=== PATIENT | female | born 1985 | race African-American/Black ===

== ENCOUNTER 2018-09-29 12:40 | Emergency (ER) | payer MEDICAID ==
[~2018-09-29] VITALS: Ht 162.6 cm; Wt 88.0 kg
[~2018-09-29 12:40] MED LIST: BENA20TA77 PO; DOCU-138 PO; FERR-63 PO; MULT-348 PO
[2018-09-29] MEDS ORDERED: SODIUM CHLORIDE 0.9% 1,000 ML IV ONE (13:56)
[2018-09-29] MEDS ORDERED: ONDANSETRON HCL 4MG/2ML INJ IV ONE (14:00)
[2018-09-29] MEDS ORDERED: MORPHINE SULFATE 4 MG/ML CPJ (NOT FOR IM USE) IV ONE (14:00)
[2018-09-29 14:38] LABS: EOSINOPHILS % 0.9 % (0.0-5.0); HEMATOCRIT. 34.3 % (36.0-48.0); HEMOGLOBIN. 11.2 g/dL (12.0-16.0); LYMPHOCYTES % 30.6 % (20.0-50.0); MEAN CORPUSCULAR HEMOGLOBIN 30.7 pg (28.0-32.0); MEAN CORPUSCULAR VOLUME 93.7 fL (81.0-99.0); MEAN PLATELET VOLUME 10.5 fl (7.4-10.4); MONOCYTES % 7.2 % (2.0-8.0); NEUTROPHILS % 60.3 % (40.0-76.0); PLATELET 250 x1000/uL (130-400); RED BLOOD CELL COUNT 3.66 mill/uL (4.2-5.4)
[2018-09-29 14:41] LABS: CHLORIDE 107 mEq/L (98-107); PROTHROMBIN TIME 10.2 sec (9.1-11.1)
[2018-09-29 15:06] LABS: B-HCG QUANTITATIVE 55919 mIU/mL (<3)
[2018-09-29 15:30] LABS: CLARITY URINE CLOUDY (CLEAR); COLOR URINE YELLOW (YELLOW); KETONES URINE TRACE (NEGATIVE); LEUKOCYTE ESTERASE URINE 2+ (NEGATIVE); NITRITE URINE NEGATIVE (NEGATIVE); OCCULT BLOOD URINE NEGATIVE (NEGATIVE); PROTEIN URINE NEGATIVE (NEGATIVE); SPECIFIC GRAVITY URINE 1.016 (1.005-1.030); UROBILINOGEN URINE 0.2 E.U./dL (0.2-1.0)
[2018-09-29 16:50] VITALS: BP 119/78
== END 2018-09-29 16:50 | disposition home or self-care (01) ==
LOC: ER 12:40
DX: O34.81 Maternal care for other abnormalities of pelvic organs, first trimester (principal); N83.202 Unspecified ovarian cyst, left side; O26.831 Pregnancy related renal disease, first trimester; N28.9 Disorder of kidney and ureter, unspecified; Z3A.01 Less than 8 weeks gestation of pregnancy
CPT/HCPCS: 36415; 76801; 76817; 80053; 81003; 81025; 84702; 85025; 85610; 86850; 86900; 86901; 93976; 99284; J7030

== ENCOUNTER 2020-03-21 08:16 | Emergency (ER) | payer MEDICAID ==
[~2020-03-21] VITALS: Ht 162.6 cm; Wt 92.0 kg
[2020-03-21 08:34] VITALS: BP 202/121
[2020-03-21] MEDS ORDERED: KETOROLAC 60MG/2ML VIAL IM ONE (09:15)
[2020-03-21] MEDS ORDERED: DEXAMETHASONE 4MG/ML 1ML VIAL IM ONE (09:15)
[2020-03-21] MEDS ORDERED: OXYCODONE HCL/ACETAMINOPHEN 5/325MG TABLET PO ONE (09:15)
[2020-03-21] MEDS ORDERED: ACETAMINOPHEN 325MG TABLET PO ONE (10:15)
== END 2020-03-21 16:10 | disposition home or self-care (01) ==
LOC: ER 08:16
DX: M54.41 Lumbago with sciatica, right side (principal)
CPT/HCPCS: 81025; 96372; 99284; J1100; J1885

== ENCOUNTER 2022-04-02 06:16 | Emergency (ER) | payer MEDICAID ==
[~2022-04-02] VITALS: Ht 162.6 cm; Wt 89.0 kg
[2022-04-02 06:24] VITALS: BP 150/103
[2022-04-02 08:38] LABS: CHLORIDE 103 mEq/L (98-107)
[2022-04-02 08:39] LABS: BASOPHILS % 0.7 % (0.0-2.0); EOSINOPHILS % 0.8 % (0.0-5.0); HEMATOCRIT. 40.4 % (36.0-48.0); HEMOGLOBIN. 13.7 g/dL (12.0-16.0); LYMPHOCYTES % 24.7 % (20.0-50.0); MEAN CORPUSCULAR HEMOGLOBIN 33.5 pg (28.0-32.0); MEAN CORPUSCULAR VOLUME 99.2 fL (81.0-99.0); MEAN PLATELET VOLUME 10.2 fl (7.4-10.4); MONOCYTES % 7.7 % (2.0-8.0); NEUTROPHILS % 66.1 % (40.0-76.0); PLATELET 249 x1000/uL (130-400); RED BLOOD CELL COUNT 4.07 mill/uL (4.2-5.4); RED CELL DISTRIBUTION WIDTH 15.7 % (11.6-14.6)
[2022-04-02 08:49] LABS: B-HCG QUANTITATIVE < 1 mIU/mL (<3)
== END 2022-04-02 11:24 | disposition left against medical advice (07) ==
LOC: ER 06:16
DX: Z53.21 Procedure and treatment not carried out due to patient leaving prior to being seen by health care provider (principal); R10.30 Lower abdominal pain, unspecified; R94.31 Abnormal electrocardiogram [ECG] [EKG]
CPT/HCPCS: 36415; 80053; 84702; 85025; 86850; 86900; 99284

== ENCOUNTER 2022-06-21 13:09 | Emergency (ER) | payer MEDICAID ==
[~2022-06-21] VITALS: Ht 170.2 cm; Wt 86.0 kg
[2022-06-21 15:03] VITALS: BP 165/98
== END 2022-06-21 15:03 | disposition home or self-care (01) ==
LOC: ER 13:09
DX: I10 Essential (primary) hypertension (principal); F43.9 Reaction to severe stress, unspecified; Z91.138 Patient's unintentional underdosing of medication regimen for other reason
CPT/HCPCS: 93005; 99283

== ENCOUNTER 2024-03-18 17:05 | Emergency (ER) | payer MEDICAID ==
[~2024-03-18] VITALS: Ht 162.6 cm; Wt 86.2 kg
[2024-03-18 17:21] VITALS: O2SAT 99
[2024-03-18 18:34] LABS: BASOPHILS % 0.4 % (0.0-2.0); DIFFERENTIAL COMMENT 0; EOSINOPHILS % 0.8 % (0.0-5.0); HEMATOCRIT. 40.8 % (36.0-48.0); HEMOGLOBIN. 13.7 g/dL (12.0-16.0); LYMPHOCYTES % 25.7 % (20.0-50.0); MEAN CORPUSCULAR HEMOGLOBIN 35.5 pg (28.0-32.0); MEAN CORPUSCULAR HGB CONC 33.5 g/dL (31.0-37.0); MEAN CORPUSCULAR VOLUME 105.8 fL (81.0-99.0); MEAN PLATELET VOLUME 9.8 fl (7.4-10.4); MONOCYTES % 7.5 % (2.0-8.0); NEUTROPHILS % 65.6 % (40.0-76.0); PLATELET 282 x1000/uL (130-400); RED BLOOD CELL COUNT 3.86 mill/uL (4.2-5.4); RED CELL DISTRIBUTION WIDTH 14.4 % (11.6-14.6); WHITE BLOOD COUNT 10.6 x1000/uL (4.5-11.0)
[2024-03-18 18:39] LABS: CHLORIDE 102 mEq/L (98-107); POTASSIUM 3.4 mEq/L (3.5-5.1); SODIUM 137 mEq/L (136-145)
[2024-03-18 18:40] LABS: CARBON DIOXIDE 30 mEq/L (21-32)
[2024-03-18 18:41] LABS: CALCIUM 8.7 mg/dL (8.7-10.4)
[2024-03-18 18:45] LABS: CREATININE 1.5 mg/dL (0.6-1.0); GLUCOSE 100 mg/dL (70-105)
[2024-03-18 18:46] LABS: HCG SCREEN NEGATIVE; UREA NITROGEN BLOOD 19 mg/dL (9-23)
[2024-03-18 18:47] LABS: ALANINE AMINOTRANSFERASE 18 IU/L (10-49); ASPARTATE AMINOTRANSFERASE 21 IU/L (<34)
[2024-03-18 18:48] LABS: BILIRUBIN DIRECT 0.1 mg/dL (<=3.0); BILIRUBIN TOTAL 0.3 mg/dL (0.1-1.0); PROTEIN TOTAL 7.1 g/dL (6.0-8.3)
[2024-03-18] MEDS ORDERED: KETOROLAC 15MG/ML VIAL IM ONE (19:45)
[2024-03-18 21:31] LABS: CLARITY URINE CLEAR (CLEAR); COLOR URINE YELLOW (YELLOW); GLUCOSE URINE NEGATIVE (NEGATIVE); KETONES URINE NEGATIVE (NEGATIVE); LEUKOCYTE ESTERASE URINE NEGATIVE (NEGATIVE); NITRITE URINE NEGATIVE (NEGATIVE); OCCULT BLOOD URINE TRACE (NEGATIVE); PROTEIN URINE 2+ (NEGATIVE); SPECIFIC GRAVITY URINE 1.025 (1.005-1.030); UROBILINOGEN URINE 0.2 E.U./dL (0.2-1.0)
[2024-03-18 21:43] LABS: BACTERIA URINE 1+; SQUAMOUS EPITHELIAL CELL URINE FEW /lpf (RARE/1+)
[2024-03-18 21:46] LABS: WBC URINE 0-2 /hpf (0-2)
[2024-03-18] MEDS: KETOROLAC 15MG/ML VIAL IM NR (21:49)
[2024-03-18 22:17] VITALS: BP 142/94; PULSE 60; RESP 18; TEMP 98.4
== END 2024-03-18 22:27 | disposition home or self-care (01) ==
LOC: ER 17:05
DX: K80.80 Other cholelithiasis without obstruction (principal); I10 Essential (primary) hypertension
CPT/HCPCS: 80076; 80048; 81003; 84703; 83690; 85025; 36415; 76705; 96372; 99285; J1885; Z7610

== ENCOUNTER 2024-05-09 11:48 | Emergency (ER) | payer MEDICAID ==
[~2024-05-09] VITALS: Ht 162.6 cm; Wt 90.0 kg
[2024-05-09 11:49] VITALS: BP 250/156; TEMP 98.8; O2SAT 100
[2024-05-09 11:54] VITALS: PULSE 95; RESP 18; O2SAT 100
[2024-05-09] MEDS ORDERED: CLIN-116 MT (13:28)
[2024-05-09] MEDS ORDERED: HYDR-4001 MT (13:29)
== END 2024-05-09 14:18 | disposition home or self-care (01) ==
LOC: ER 12:47
DX: K04.7 Periapical abscess without sinus (principal); I10 Essential (primary) hypertension; Z79.899 Other long term (current) drug therapy
CPT/HCPCS: 99283

== ENCOUNTER 2025-06-01 09:44 | Emergency (ER) | payer BC, MEDICAID ==
[~2025-06-01] VITALS: Ht 162.6 cm; Wt 91.0 kg
[~2025-06-01 09:44] MED LIST changes: +CLIN-116 MT; +HYDR-4001 MT
[2025-06-01 09:46] VITALS: O2SAT 98
[2025-06-01 09:50] VITALS: BP 190/114; PULSE 55; RESP 16; TEMP 37.1; O2SAT 98
[2025-06-01 10:42] LABS: BASOPHILS % 0.9 % (0.0-2.0); EOSINOPHILS % 2.3 % (0.0-5.0); HEMATOCRIT. 41.4 % (36.0-48.0); HEMOGLOBIN. 13.6 g/dL (12.0-16.0); LYMPHOCYTES % 30.9 % (20.0-50.0); MEAN PLATELET VOLUME 9.7 fl (7.4-10.4); MONOCYTES % 7.8 % (2.0-8.0); NEUTROPHILS % 58.1 % (40.0-76.0); PLATELET 274 x1000/uL (130-400); RED BLOOD CELL COUNT 4.05 mill/uL (4.2-5.4); RED CELL DISTRIBUTION WIDTH 15.0 % (11.6-14.6)
[2025-06-01 10:57] LABS: UREA NITROGEN BLOOD 28 mg/dL (9-23)
[2025-06-01 10:59] LABS: ASPARTATE AMINOTRANSFERASE 10 IU/L (<34); BILIRUBIN DIRECT 0.1 mg/dL (<=3.0)
[2025-06-01 11:00] LABS: BILIRUBIN TOTAL 0.4 mg/dL (0.1-1.0); PROTEIN TOTAL 7.1 g/dL (6.0-8.3)
[2025-06-01 11:02] LABS: CREATININE 2.9 mg/dL (0.6-1.0)
[2025-06-01] MEDS: SODIUM CHLORIDE 0.9% 1,000 ML IV ONE (13:06)
[2025-06-01 16:09] LABS: HCG SCREEN NEGATIVE
== END 2025-06-01 13:06 | disposition home or self-care (01) ==
LOC: ER 09:44 → CMPBEDREQ 19:14
DX: N28.9 Disorder of kidney and ureter, unspecified (principal); K80.70 Calculus of gallbladder and bile duct without cholecystitis without obstruction; I10 Essential (primary) hypertension; Z79.899 Other long term (current) drug therapy
CPT/HCPCS: 36415; 76705; 80048; 80076; 81025; 84703; 85025; 99284; J7030

== ENCOUNTER 2025-09-03 06:24 | Emergency (ER) | payer BC, MEDICAID ==
[~2025-09-03] VITALS: Ht 165.1 cm; Wt 88.0 kg
[2025-09-03 06:35] VITALS: O2SAT 100
[2025-09-03] MEDS: LABETALOL HCL 100MG TABLET PO NR (07:16)
[2025-09-03] MEDS: LABETALOL 5MG/ML 4ML INJ IV NR (07:16)
[2025-09-03 07:26] LABS: BASOPHILS % 1.2 % (0.0-2.0); EOSINOPHILS % 0.2 % (0.0-5.0); HEMATOCRIT. 39.5 % (36.0-48.0); HEMOGLOBIN. 13.2 g/dL (12.0-16.0); LYMPHOCYTES % 24.0 % (20.0-50.0); MEAN PLATELET VOLUME 10.1 fl (7.4-10.4); MONOCYTES % 5.0 % (2.0-8.0); NEUTROPHILS % 69.6 % (40.0-76.0); PLATELET 304 x1000/uL (130-400); RED BLOOD CELL COUNT 4.10 mill/uL (4.2-5.4); RED CELL DISTRIBUTION WIDTH 15.9 % (11.6-14.6)
[2025-09-03 07:41] LABS: UREA NITROGEN BLOOD 23.0 mg/dL (9-23)
[2025-09-03 07:43] LABS: TROPONIN I HIGH SENSITIVITY 26 ng/L (3.0-34)
[2025-09-03 07:46] LABS: CREATININE 1.8 mg/dL (0.6-1.0)
[2025-09-03] MEDS: NITROGLYCERIN OINT 1GM/INCH UDPKT TD ONE (08:03)
[2025-09-03] MEDS: LABETALOL 5MG/ML 4ML INJ IV ONE (08:03)
[2025-09-03] MEDS ORDERED: CLONIDINE 0.2MG TABLET PO ONE (09:15)
[2025-09-03] MEDS: CLONIDINE 0.1MG TABLET PO SCH (09:26)
[2025-09-03] MEDS: HYDRALAZINE 20MG/ML VIAL IV NR (10:30)
[2025-09-03 13:00] VITALS: BP 142/89; PULSE 77; RESP 18; TEMP 36.6; O2SAT 100
== END 2025-09-03 13:02 | disposition home or self-care (01) ==
LOC: ER 06:24 → UNDOADMIN 10:15 → 5WST 10:15 → ENRESERV 11:37
DX: I16.0 Hypertensive urgency (principal)
CPT/HCPCS: 80048; 85025; 84484; 36415; 99291; J0360; J3490; Z7610